=== PATIENT | male | born 1985 | race Caucasian/White ===

== ENCOUNTER 2017-04-26 09:22 | Inpatient (IN) | payer OTHER ==
[2017-04-26] VITALS (10 sets, daily range): BP systolic 100–146; BP diastolic 56–84; PULSE 94–130; RESP 20–24; TEMP 98.4–99.9; O2SAT 87–100
[~2017-04-26] VITALS: Ht 177.8 cm; Wt 101.9 kg
--- NOTE | 2017-04-26 15:10 | RADRPT ---
EXAM DATE/TIME: 04/26/2017 14:27 [facility] COMPARISON: No previous studies available for comparison. INDICATIONS : Organ donor MEDICAL HISTORY : none known SURGICAL HISTORY : none known ENCOUNTER: Initial ACUITY: 1 day PAIN SCORE: Non-responsive. LOCATION: Bilateral chest FINDINGS: ETT at the level of the clavicles. The left subclavian catheter in the atrial caval junction. NGT in the stomach. Hazy bilateral lower lung zone opacities likely reflecting combination of airspace disea se and small pleural effusions. Cardiomediastinal contours are within normal limits. Bony thorax is i ntact. CONCLUSION: 1. Lines and tubes, as above. 2. Bilateral lower lung zone airspace disease and small pleural effusions. Juan Pierce MD on April 26, 2017 at 15:08 Board Certified Radiologist. This report was verified electronically.
[2017-04-26] MEDS ORDERED: INSULIN HUMAN REGULAR 1,000 UNITS/10 ML VIAL IV PUSH SCH (15:45)
[2017-04-26] MEDS ORDERED: DEXTROSE 50% IN WATER 50 ML VIAL(D50) IV PUSH SCH (15:45)
[2017-04-26] MEDS ORDERED: methylPREDNISolone SOD SUCC 1000 MG/16 ML VIAL IV SCH (15:45)
[2017-04-26] MEDS ORDERED: LEVOTHYROXINE SODIUM 100 MCG VIAL IV PUSH ONE (15:45)
[2017-04-26] MEDS ORDERED: 1/2 NS + KCL 20 MEQ INJ 1,000 ML IV SCH (15:45)
[2017-04-26 15:58] LABS: AUTOMATED NEUTROPHIL # 4.7 TH/MM3 (1.8-7.7); BASOPHIL % 0.3 % (0.0-2.0); EOSINOPHIL # 0.5 TH/MM3 (0-0.4); EOSINOPHIL % 7.2 % (0.0-4.0); HEMATOCRIT 22.3 % (39.0-51.0); HEMOGLOBIN 7.7 GM/DL (13.0-17.0); LYMPH % 15.1 % (9.0-44.0); MEAN CELL VOLUME 91.2 FL (80.0-100.0); MEAN CORPUSCULAR HEMOGLOBIN 31.3 PG (27.0-34.0); MEAN CORPUSCULAR HGB CONC 34.4 % (32.0-36.0); MEAN PLATELET VOLUME 7.3 FL (7.0-11.0); MONO % 4.9 % (0.0-8.0); MONOCYTE # 0.3 TH/MM3 (0-0.9); NEUT % 72.5 % (16.0-70.0); PLATELET COUNT 80 TH/MM3 (150-450); RED BLOOD COUNT 2.44 MIL/MM3 (4.50-5.90); RED CELL DISTRIBUTION WIDTH 14.6 % (11.6-17.2); WHITE BLOOD COUNT 6.5 TH/MM3 (4.0-11.0)
[2017-04-26] MEDS: RESP: ACETYLCYSTEINE 20% 30 ML NEB NEB SCH ×2 (16:00→20:00)
[2017-04-26] MEDS ORDERED: cefTAZidime 1,000 MG/NS 100 ML IV SCH ×2 (16:00)
[2017-04-26] MEDS ORDERED: methylPREDNISolone SO SUCC INJ 2,000 MG in SODIUM CHLOR 0.9% 250 ML INJ 250 ML IV ONE (16:00)
[2017-04-26] MEDS ORDERED: CLINDAMYCIN 900 MG in NS 100 ML IV SCH (16:00)
[2017-04-26 16:10] LABS: BILIRUBIN, URINE NEG (NEG); BLOOD, URINE MOD (NEG); GLUCOSE,URINE NEG (NEG); KETONE, URINE NEG (NEG); MUCUS URINE FEW /lpf (OCC); NITRITE,URINE NEG (NEG); URINE COLOR YELLOW (YELLW/STRAW); URINE LEUKOCYTE ESTERASE NEG (NEG)
[2017-04-26 16:14] LABS: ALBUMIN 1.1 GM/DL (3.4-5.0); ALT (GPT) 22 U/L (12-78); AST (GOT) 111 U/L (15-37); BICARBONATE 22.6 MEQ/L (21.0-32.0); BLOOD UREA NITROGEN 41 MG/DL (7-18); CHLORIDE 130 MEQ/L (98-107); CREATININE 2.75 MG/DL (0.60-1.30); DIRECT BILIRUBIN ADULT 0.4 MG/DL (0.0-0.2); GAMMA GT 15 U/L (15-85); GLOMERULAR FILTRATION RATE 27 ML/MIN (>89); GLUCOSE,RANDOM 74 MG/DL (74-106); MAGNESIUM 2.2 MG/DL (1.5-2.5); PHOSPHORUS 3.4 MG/DL (2.5-4.9)
[2017-04-26] MEDS ORDERED: ICU - MAGNESIUM OXIDE 400 MG TAB PO PRN (16:15)
[2017-04-26] MEDS ORDERED: ICU - CALL ORDERING PHYSICIAN PRN (16:15)
[2017-04-26] MEDS ORDERED: ICU - POTASSIUM PHOSPHATE 30 MMOL/NS 250 ML IV PRN ×2 (16:15)
[2017-04-26] MEDS ORDERED: ICU - POTASSIUM CHLORIDE/AQUEOUS SOLN 40 MEQ/100 ML IVPB IV PRN (16:15)
[2017-04-26] MEDS ORDERED: ICU - POTASSIUM CHLORIDE/AQUEOUS SOLN 20 MEQ/100 ML IVPB IV PRN (16:15)
[2017-04-26] MEDS ORDERED: ICU - SODIUM PHOSPHATE 30 MMOL/NS 250 ML IV PRN ×2 (16:15)
[2017-04-26] MEDS ORDERED: ICU - MAGNESIUM SULFATE 2 GM/NS 100 ML IV PRN ×2 (16:15)
[2017-04-26] MEDS ORDERED: ICU - MAGNESIUM SULFATE 4 GM/NS 100 ML IV PRN ×2 (16:15)
[2017-04-26] MEDS ORDERED: ICU - D/C ICU ELECTROLYTE ORDERS PRN (16:15)
[2017-04-26] MEDS ORDERED: POTASSIUM CHLORIDE 25 MEQ EFFERVESCENT TAB PO PRN (16:15)
[2017-04-26] MEDS ORDERED: ICU - POTASSIUM PHOSPHATE MONOBASIC 500 MG TAB PO PRN (16:15)
[2017-04-26] MEDS ORDERED: SODIUM CHLORIDE 23.4% INJ 38.5 MEQ, POTASSIUM CHLORIDE INJ 20 MEQ in WATER STERILE FOR ... IV SCH (16:15)
[2017-04-26 16:27] LABS: ALKALINE PHOSPHATASE 47 U/L (45-117); INDIRECT BILIRUBIN 0.3 MG/DL (0.0-0.8); TOTAL BILIRUBIN ADULT 0.7 MG/DL (0.2-1.0); TOTAL PROTEIN 4.3 GM/DL (6.4-8.2)
[2017-04-26 16:30] LABS: CALCIUM 6.6 MG/DL (8.5-10.1); SODIUM (NA) 161 MEQ/L (136-145); TROPONIN I 1.42 NG/ML (0.02-0.05)
[2017-04-26 16:45] LABS: BANDS 12 % (0-6); CORRECTED NUCLEATED RBC 1 /100 WBC (0-0); LYMPHOCYTES 11 % (9-44); METAMYELOCYTES 1 % (0-1); MONOCYTES 4 % (0-8); NUCLEATED RED BLOOD CELL 1 (0-0); POLYS (SEG NEUTROPHILS) 64 % (16-70)
[2017-04-26 16:48] LABS: INTERNATIONAL NORMALIZED RATIO 1.3 RATIO; PROTHROMBIN TIME - PATIENT 12.7 SEC (9.8-11.6)
[2017-04-26] MEDS: CEFEPIME 1000 MG/NS 100 ML IV SCH ×4 (17:00→22:40)
[2017-04-26] MEDS: LEVOTHYROXINE 400 MCG/NS 500 ML IV SCH ×2 (17:01)
[2017-04-26] MEDS: VASOPRESSIN 80 U/NS 100 ML Titrate per Translife Protocol IV PRN ×4 (17:03→19:55)
[2017-04-26] MEDS: DOPamine INJ 400 MG in SODIUM CHLOR 0.9% 250 ML INJ 250 ML IV SCH (17:04)
[2017-04-26 17:16] LABS: CALCIUM-PROTEIN CORRECTED 8.1 MG/DL (8.5-10.1)
[2017-04-26] MEDS ORDERED: CALCIUM GLUCONATE INJ 2 GM in SODIUM CHLORIDE 0.9% INJ 100 ML IV STA (18:24)
[2017-04-26] MEDS ORDERED: ALBUMIN 25% INJ 100 ML IV STA (18:28)
[2017-04-26] MEDS ORDERED: DEXTROSE 5% IN WATE 1000ML INJ 1,000 ML IV SCH (18:30)
[2017-04-26] MEDS ORDERED: FUROSEMIDE 40 MG/4 ML VIAL IV PUSH ONE (18:30)
[2017-04-26] MEDS: RESP: ALBUTEROL 2.5 MG/3 ML NEB (SCH) NEB (20:00)
[2017-04-26] MEDS: [UNRECOGNIZED DRUG - REMARK] OG-TUBE SCH (20:14)
[2017-04-26] MEDS ORDERED: DEXTROSE 50% IN WATER 50 ML SYRINGE ONE (20:52)
[2017-04-26] MEDS ORDERED: DEXTROSE 50% IN WATER 50 ML VIAL(D50) IV PRN (21:00)
[2017-04-26] MEDS ORDERED: DEXTROSE 50% IN WATER 50 ML VIAL(D50) IV ONE (21:00)
--- NOTE | 2017-04-26 21:09 | ECHRPT ---
Indication: ORGAN DONOR CONCLUSIONS Normal left ventricular size. Wall thickness is normal. The left ventricular systolic function is mildly reduced with an estimated ejection fraction in the range of 45% - 50%. mild mitral valve regurgitation. BP: / HR: Rhythm: Technical Quality:Good FINDINGS LEFT VENTRICLE Normal left ventricular size. Wall thickness is normal. The left ventricular systolic function is mildly reduced with an estimated ejection fraction in the range of 45%. RIGHT VENTRICLE Normal right ventricular size and systolic function. LEFT ATRIUM The left atrial size is normal. RIGHT ATRIUM The right atrial size is normal. ATRIAL SEPTUM Normal atrial septal thickness without atrial level shunting by limited color doppler interrogation. AORTA The aortic root and proximal ascending aorta are normal in size on limited imaging. MITRAL VALVE Trace mitral valve regurgitation. AORTIC VALVE Trileaflet aortic valve. No aortic valve stenosis or regurgitation. TRICUSPID VALVE Structurally normal tricuspid valve. No tricuspid valve stenosis or regurgitation. PULMONARY VALVE The pulmonary valve is not well visualized. VESSELS The inferior vena cava is normal in size. PERICARDIUM No pericardial effusion. Rafy Jurado MD, FACC, FSCAI (Electronically Signed) Final Date:26 April 2017 21:08
[2017-04-26 21:48] LABS: AUTOMATED NEUTROPHIL # 2.9 TH/MM3 (1.8-7.7); BASOPHIL % 0.6 % (0.0-2.0); EOSINOPHIL # 0.1 TH/MM3 (0-0.4); HEMATOCRIT 21.8 % (39.0-51.0); HEMOGLOBIN 7.4 GM/DL (13.0-17.0); LYMPH % 7.9 % (9.0-44.0); LYMPHOCYTE # 0.3 TH/MM3 (1.0-4.8); MEAN CELL VOLUME 91.5 FL (80.0-100.0); MEAN CORPUSCULAR HGB CONC 33.9 % (32.0-36.0); MEAN PLATELET VOLUME 7.6 FL (7.0-11.0); MONOCYTE # 0.2 TH/MM3 (0-0.9); NEUT % 82.5 % (16.0-70.0); PLATELET COUNT 62 TH/MM3 (150-450); RED BLOOD COUNT 2.38 MIL/MM3 (4.50-5.90); RED CELL DISTRIBUTION WIDTH 14.8 % (11.6-17.2); WHITE BLOOD COUNT 3.5 TH/MM3 (4.0-11.0)
[2017-04-26 22:15] LABS: ALBUMIN 1.5 GM/DL (3.4-5.0); BICARBONATE 21.9 MEQ/L (21.0-32.0); CALCIUM 7.1 MG/DL (8.5-10.1); CALCIUM-PROTEIN CORRECTED 8.5 MG/DL (8.5-10.1); CREATININE 2.84 MG/DL (0.60-1.30); TOTAL PROTEIN 4.6 GM/DL (6.4-8.2)
[2017-04-26 22:41] LABS: BANDS 5 % (0-6); LYMPHOCYTES 10 % (9-44); MONOCYTES 2 % (0-8); NEUTROPHIL # MANUAL DIFF 2.9 TH/MM3 (1.8-7.7); POLYS (SEG NEUTROPHILS) 77 % (16-70)
[2017-04-26 22:42] LABS: TOXIC GRANULATION 3+ (NORMAL)
[2017-04-26 22:43] LABS: DOHLE BODIES PRESENT (NONE SEEN)
[2017-04-27] VITALS (16 sets, daily range): BP systolic 81–121; BP diastolic 45–82; PULSE 20–158; RESP 20; TEMP 98.4–99.9; O2SAT 85–100
[2017-04-27] MEDS: [UNRECOGNIZED DRUG - REMARK] OG-TUBE SCH ×3 (00:29→08:00)
[2017-04-27] MEDS ORDERED: MILRINONE INJ 20 MG in SODIUM CHLORIDE 0.9% INJ 80 ML IV SCH (00:30)
[2017-04-27] MEDS ORDERED: NON-FORMULARY DRUG IV PUSH SCH ×2 (00:30→00:45)
[2017-04-27] MEDS ORDERED: methylPREDNISolone SO SUCC INJ 1,000 MG in SODIUM CHLORIDE 0.9% INJ 100 ML IV SCH ×3 (01:00)
[2017-04-27] MEDS: MILRINONE INJ 20 MG in SODIUM CHLORIDE 0.9% INJ 80 ML IV SCH ×3 (01:25→08:48)
[2017-04-27] MEDS: NOREPINEPHRINE 4 MG/D5W 250 ML IV PRN ×3 (03:00→10:10)
[2017-04-27] MEDS: VASOPRESSIN 80 U/NS 100 ML Titrate per Translife Protocol IV PRN ×4 (03:01→08:48)
[2017-04-27] MEDS: RESP: ACETYLCYSTEINE 20% 30 ML NEB NEB SCH ×4 (03:19→11:53)
[2017-04-27] MEDS: RESP: ALBUTEROL 2.5 MG/3 ML NEB (SCH) NEB ×4 (03:20→11:53)
[2017-04-27] MEDS ORDERED: CLINDAMYCIN 900 MG/NS PREMIX 50 ML IV SCH (04:00)
[2017-04-27] MEDS ORDERED: LACTATED RINGER'S 1000 ML INJ 500 ML IV SCH (04:30)
[2017-04-27] MEDS ORDERED: FUROSEMIDE 40 MG/4 ML VIAL ONE (04:38)
--- NOTE | 2017-04-27 05:05 | RADRPT ---
EXAM DATE/TIME: 04/27/2017 04:24 [facility] COMPARISON: CHEST SINGLE AP, April 26, 2017, 14:27. INDICATIONS : Organ donor. MEDICAL HISTORY : None. SURGICAL HISTORY : None. ENCOUNTER: Initial ACUITY: 1 day PAIN SCORE: Non-responsive. LOCATION: Bilateral chest FINDINGS: ET tube tip well above the bill. Left subclavian catheter tip projects at the cavoatrial junction. Gastric tube traverses the [id number]. Hazy parenchymal opacity in the mid and lower lungs bila terally with loss of delineation of both hemidiaphragms, similar to prior. CONCLUSION: Opacity is in the lower lungs, stable from prior, characteristic of a combination of airspace disease and pleural effusions. Sanchez Larsen MD on April 27, 2017 at 5:03 Board Certified Radiologist. This report was verified electronically.
[2017-04-27] MEDS: CEFEPIME 1000 MG/NS 100 ML IV SCH ×2 (05:33)
[2017-04-27 06:10] LABS: AUTOMATED NEUTROPHIL # 4.9 TH/MM3 (1.8-7.7); BASOPHIL % 0.4 % (0.0-2.0); EOSINOPHIL % 0.2 % (0.0-4.0); HEMATOCRIT 26.8 % (39.0-51.0); LYMPH % 8.1 % (9.0-44.0); LYMPHOCYTE # 0.5 TH/MM3 (1.0-4.8); MEAN CORPUSCULAR HEMOGLOBIN 29.7 PG (27.0-34.0); MEAN CORPUSCULAR HGB CONC 33.7 % (32.0-36.0); MEAN PLATELET VOLUME 7.5 FL (7.0-11.0); MONO % 4.1 % (0.0-8.0); MONOCYTE # 0.2 TH/MM3 (0-0.9); NEUT % 87.2 % (16.0-70.0); PLATELET COUNT 84 TH/MM3 (150-450); RED BLOOD COUNT 3.05 MIL/MM3 (4.50-5.90); RED CELL DISTRIBUTION WIDTH 17.6 % (11.6-17.2); WHITE BLOOD COUNT 5.6 TH/MM3 (4.0-11.0)
[2017-04-27] MEDS: DOPamine INJ 400 MG in SODIUM CHLOR 0.9% 250 ML INJ 250 ML IV SCH (06:41)
[2017-04-27 08:01] LABS: ALBUMIN 1.6 GM/DL (3.4-5.0); CALCIUM 7.1 MG/DL (8.5-10.1); CALCIUM-PROTEIN CORRECTED 8.2 MG/DL (8.5-10.1); CREATININE 3.16 MG/DL (0.60-1.30); TOTAL BILIRUBIN ADULT 1.4 MG/DL (0.2-1.0); TOTAL PROTEIN 5.1 GM/DL (6.4-8.2)
[2017-04-27 08:02] LABS: BICARBONATE 19.6 MEQ/L (21.0-32.0)
[2017-04-27] MEDS: LEVOTHYROXINE 400 MCG/NS 500 ML IV SCH ×2 (08:31)
[2017-04-27] MEDS ORDERED: SODIUM CHLOR 0.9% 250 ML INJ 500 ML IV ONE (12:02)
[2017-04-27] MEDS ORDERED: STERILE WATER FOR INJECTION 20 ML VIAL IV ONE (12:02)
[2017-04-27] MEDS ORDERED: PHENYLEPH/NS 1000 MCG/10 ML SYR IV ONE (12:02)
== END 2017-04-27 12:03 | disposition expired | DRG 951 ==
LOC: N03B 09:22
DX: Z52.89 Donor of other specified organs or tissues (principal)
CPT/HCPCS: 36430; 71045; 80048; 80053; 80076; 81001; 82150; 82330; 82550; 82552; 82805; 82948; 82977; 83036; 83690; 83735; 84100; 84155; 84484; 85007; 85025; 85027; 85384; 85610; 85730; 86403; 86850; 86900; 86901; 86920; 87015; 87070; 87077; 87102; 87116; 87186; 87205; 87206; 93306; 94003; 94640; 94664; 94667; 94668; J0610; J0692; J1265; J1815; J1940; J2260; J2370; J2930; J3480; J7040; J7050; J7070; J7120; J7613; P9016; P9047